=== PATIENT | female | born 1960 | race Caucasian/White ===

== ENCOUNTER → 2017-10-31 | Outpatient (CLI) | payer OTHER ==
[~2017-10-31] VITALS: Ht 167.6 cm; Wt 97.0 kg
[~2017-10-31] MED LIST: ASPI1TAB57 PO; ATEN50TA PO; CHLO25TA2 PO; CHLORHEXIDINE GLUCONATE 2 % 1 PACK (2 CLOTHS) TOPICAL PRN; DEXTROSE 5%-LACTATED RING INJ 1,000 ML IV ONE; LACTATED RINGER'S 1000 ML IV PRN; LIDOCAINE HCL 1% PF 5 ML SYRINGE OTHER ONE; LORA0.5T PO; METOPROLOL TARTRATE 25 MG TAB PO PRN; POVIDONE IODINE 5% (ANTISEPSIS KIT) 4 APPLICATIONS EACH NARE PRN; PROPOFOL 200 MG/20 ML AMP IV ONE; SODIUM CHLORID 0.9% 500 ML IV PRN; ZOLP5TAB3 PO
[2017-10-31 11:14] VITALS: TEMP 98.4
--- NOTE | 2017-10-31 11:19 | GIPROC ---
[facility] [address] [facility]. [facility], [address] COLONOSCOPY PROCEDURE REPORT EXAM DATE: 10/31/2017 PATIENT NAME: Julia Saavedra MR #: [id number] BIRTHDATE: 1960 ENDOSCOPIST: Deedee Go MD ORDER #: [id number] WIRELESS INTERNET INSTALLER: Denzel Chambers and Lilibeth Johnson STATUS: outpatient INDICATIONS: The patient is a 57 yr old female here for a colonoscopy due to family history of colon cancer, diarrhea, bloating PROCEDURE PERFORMED: Colonoscopy, screening MEDICATIONS: None and Per Anesthesia. PREP QUALITY: fair PREP TYPE:Other: ESTIMATED BLOOD LOSS: None CONSENT: The patient understands the risks and benefits of the procedure and understands that these risks include, but are not limited to: sedation, allergic reaction, infection, perforation and/or bleeding. Alternative means of evaluation and treatment include, among others: physical exam, x-rays, and/or surgical intervention. The patient elects to proceed with this endoscopic procedure. medical equipment was checked for proper function. Hand hygiene and appropriate measures for infection prevention was taken. After the risks, benefits and alternatives of the procedure were thoroughly explained, Informed consent was verified, confirmed and timeout was successfully executed by the treatment team. A digital exam revealed internal hemorrhoids and revealed external hemorrhoids The Pentax EC-3490Li endoscope was introduced through the anus and advanced to the cecum, which was identified by both the appendix and ileocecal valve. The instrument was then slowly withdrawn as the colon was fully examined. COLON FINDINGS: Diverticulosis sigmoid,descending. Retroflexed views revealed internal hemorrhoids and Retroflexed views revealed small internal hemorrhoids The scope was then completely withdrawn from the patient and the procedure terminated. PROCEDURE WITHDRAWAL TIME:6minutes ADVERSE EVENTS: There were no complications. IMPRESSIONS: 1. Diverticulosis sigmoid,descending 2. Retroflexed views revealed internal hemorrhoids 3. Retroflexed views revealed small internal hemorrhoids 4. Revealed internal hemorrhoids 5. Revealed external hemorrhoids RECOMMENDATIONS: 1. Await biopsy results. Biopsy results will not be ready for 7-10 days. If you don't hear from us in two weeks, call our office for results. 2. Benefiber 2 tsp daily 3. Probiotics from any [facility] or health food store RECALL: Return 5 years Colonoscopy Deedee Go MD eSigned: Deedee Go MD 10/31/2017 11:18 AM cc: Mae Jacobs M.D.
--- NOTE | 2017-10-31 11:21 | GIPROC ---
[facility] [address] [facility]. [facility], [address] EGD WITH DILATION PROCEDURE REPORT EXAM DATE: 10/31/2017 PATIENT NAME: Julia Saavedra MR#: [id number] BIRTHDATE: 1960 ATTENDING: Dedeee Go MD ORDER #: [id number] ORCHESTRA DIRECTOR: Denzel Chambers and Lilibeth Johnson STATUS: outpatient INDICATIONS: The patient is a 57 yr old female here for an EGD with dilation due to dysphagia reflux diarrhea, bloating PROCEDURE PERFORMED: EGD w/ biopsy EGD w/ dilation of esophagus via guidewire MEDICATIONS: None and Per Anesthesia. TOPICAL ANESTHETIC: none CONSENT: The patient understands the risks and benefits of the procedure and understands that these risks include, but are not limited to: sedation, allergic reaction, infection, perforation and/or bleeding. Alternative means of evaluation and treatment include, among others: physical exam, x-rays, and/or surgical intervention. The patient elects to proceed with this endoscopic procedure. medical equipment was checked for proper function. Hand hygiene and appropriate measures for infection prevention was taken. After the risks, benefits and alternatives of the procedure were thoroughly explained, Informed consent was verified, confirmed and timeout was successfully executed by the treatment team. The patient was anesthetized with topical anesthesia and the EC-3490Li (Pedi C) endoscope was introduced through the mouth and advanced to the second portion of the duodenum. The instrument was slowly withdrawn as the mucosa was fully examined. Duodenum normal-biopsy gastritis antrum-biopsy irregular z line-biopsy esophagitis midesophagus-biopsy esophageal sapsm distal esophagus -s/p dilatation 14, 15. Dilation was performed at gastroesophageal junction. DILATOR: SIZE(S): RESISTANCE: HEME: APPEARANCE: Dilator: Savary over guidewire Size(s): 14,15 COMMENT: Retroflexed views revealed a hiatal hernia ADVERSE EVENTS: There were no complications. IMPRESSIONS: 1. Duodenum normal-biopsy gastritis antrum-biopsy irregular z line-biopsy esophagitis midesophagus-biopsy esophageal sapsm distal esophagus -s/p dilatation 14, 15 2. Retroflexed views revealed a hiatal hernia RECOMMENDATIONS: 1. Anti-reflux regimen 2. Continue PPI 3. Dilatations PRN 4. Avoid NSAIDS REPEAT EXAM: Return 3 years EGD Deedee Go MD eSigned: Deedee Go MD 10/31/2017 11:21 AM cc: Mae Jacobs M.D. PATIENT NAME: Julia Saavedra MR#: [id number]
[2017-10-31 11:40] VITALS: BP 158/78; PULSE 64; RESP 18; O2SAT 100
--- NOTE | 2017-10-31 16:07 | EKG ---
Date Performed: 10/31/2017 Time Performed: 08:18:43 PTAGE: 57 years EKG: Sinus rhythm POSSIBLE RIGHT VENTRICULAR CONDUCTION DELAY BORDERLINE ECG Since the prior tracing, there has been n o significant change PREVIOUS TRACING : 01/30/2007 20.35 DOCTOR: Mahendra Jay Interpretating Date/Time 10/31/2017 16:05:36
== END ==
LOC: HSDC 07:51
PROVIDERS: ATTEND Internal Medicine Gastroenterology
DX: R13.10 Dysphagia, unspecified (principal); K22.4 Dyskinesia of esophagus; R19.7 Diarrhea, unspecified; K29.70 Gastritis, unspecified, without bleeding; K21.0 Gastro-esophageal reflux disease with esophagitis; R14.0 Abdominal distension (gaseous); K44.9 Diaphragmatic hernia without obstruction or gangrene; Z80.0 Family history of malignant neoplasm of digestive organs; K57.30 Diverticulosis of large intestine without perforation or abscess without bleeding; K64.4 Residual hemorrhoidal skin tags; K64.8 Other hemorrhoids; I10 Essential (primary) hypertension; Z01.818 Encounter for other preprocedural examination
CPT/HCPCS: 00813; 43239; 43248; 45380; 88305; 88312; 93005; C1769